=== PATIENT | male | born 1990 | race Caucasian/White ===

== ENCOUNTER 2022-06-15 02:47 | Emergency (ER) | payer SELFPAY ==
--- NOTE | 2022-06-15 03:25 | ED.GENADULT ---
HPI - General Adult General Chief complaint: Extremity Injury, Upper Stated complaint: upper arm injury Time Seen by Provider: 06/15/22 03:01 History of Present Illness HPI narrative: Patient is a 31-year-old gentleman who presents emerged department with chief complaint of right upper extremity injury. The patient states that he was carrying things for a hunting trip tripped and fell and a knife struck his right upper extremity. The patient states that he started bleeding profusely and he applied quick clot to the area and then also when he fell his canister of barrier spray discharged the patient reports he is comprehensive and reports that he has full sensation in his right upper extremity the patient reports that the bleeding was controlled prior to arrival patient reports he is up-to-date on his tetanus status. Related Data Allergies Allergy/AdvReac Type Severity Reaction Status Date / Time No Known Allergies Allergy Mild Unverified 07/26/11 20:16 Review of Systems Review of Systems: A 10 system review of systems was completed on the patient and is negative except for what is stated in the HPI. Nursing and ancillary documentation was reviewed. Exam Narrative: GENERAL: Well-appearing, well-nourished, and in no acute distress. HEAD: Normocephalic, atraumatic. EYES: PERRLA and EOMI. ENT: Nares clear, no rhinorrhea or epistaxis. Mucous membranes moist. NECK: Supple. CHEST: Clear to auscultation. No respiratory distress. HEART: Regular rate and rhythm. No murmur heard. Normal peripheral pulses. ABDOMEN: Soft, nontender, nondistended, normal active bowel sounds. EXTREMITIES: Normal range of motion. No edema. There is a 3 cm laceration to the right upper extremity bleeding is controlled SKIN: Warm, dry, no rash. NEURO: No focal deficits. Alert and oriented x3. PSYCH: Normal mood and affect. Procedures Laceration Laceration 1: Date: 06/15/22 Time: 03:27 Site: upper extremity (Right upper extremity) Size (cm): 3 Description: linear Depth: simple, single layer Local Anesthetic: lidocaine 1% and with epi Amount of anesthesia used (mL): 6 Pre-repair: wound explored, irrigated, irrigated extensively and deep structures intact ====== Skin Level ====== Skin layer closed with: nylon Size (cm): 4-0 Number of sutures: 5 Technique: simple, interrupted ====== Subcutaneous Layer ====== ====== Muscle Layer ====== ====== Tendon Layer ====== Discharge Plan Discharge Clinical Impression: Laceration of right upper arm Patient Disposition: Home, Self-Care Condition: Stable Instructions: Antibiotic Form, Care For Your Stitches (ED), Laceration (ED) Additional Instructions: You have 5 sutures they should be removed in 7 to 10 days Prescriptions: New cephalexin 500 mg capsule 500 mg PO QID 7 Days Qty: 28 0RF Follow-up/Referrals: PHYSICIAN NOT ON STAFF,NONSTAFF [Primary Care Provider] - Time of Disposition: 03:30
[2022-06-15] MEDS: LIDO 1%/EPINEPHRINE/PF 1:200,000 30 ML VIAL (03:27)
[2022-06-15] MEDS: ceFAZolin SODIUM 1 GM VIAL 2 GM IM (03:27)
[2022-06-15 03:30] VITALS: BP 149/90; PULSE 110; RESP 14; TEMP 36.8; O2SAT 95
--- NOTE | 2022-06-15 03:42 | PC.NURSE ---
Pt also reports having bear mace in his eyes from the incident. Pt taken to eye wash station where he was able to effectively irrigate his eyes and get relief.
== END 2022-06-15 03:55 | disposition home or self-care (01) ==
LOC: ANHED 03:34
PROVIDERS: Emergency Provider Emergency Medicine
DX: S41.111A Laceration without foreign body of right upper arm, initial encounter (principal); W26.0XXA Contact with knife, initial encounter; W01.118A Fall on same level from slipping, tripping and stumbling with subsequent striking against other sharp object, initial encounter
CPT/HCPCS: 12002; 96372; 99283; J0690